=== PATIENT | female | born 1935 | race Caucasian/White ===

== ENCOUNTER 2017-01-19 09:00 | Inpatient (IN) ==
--- NOTE | 2017-01-31 08:34 | HISTORY AND PHYSICAL ---
DATE OF SURGERY: 02/02/2017 HISTORY: The patient is an 81-year-old female referred to me by Dr. Betito Woods who had been having increasing problems with symptomatic pelvic organ prolapse. The patient has undergone pessary management that has lasted approximately 2 months. She has had expulsion of the pessary and she is strongly desiring to proceed with surgical intervention. We discussed an obliterative procedure with her and she understands that this would terminate ability for sexual activity. The patient is being admitted at this time for colpectomy and mid urethral sling with Obtryx. The risks and benefits have been discussed at length. She understands and is wishing to proceed to surgical intervention. PAST MEDICAL HISTORY: Positive for hypertension, atrial fibrillation, type 2 diabetes, hypothyroidism, hypercholesterolemia. PAST SURGICAL HISTORY: Positive for a left mastectomy, bilateral tubal ligation, right hip fracture, and transvaginal hysterectomy. 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 ALLERGIES: None. CURRENT MEDICATIONS: Metoprolol 100, amlodipine 10, irbesartan 300, clonidine 0.1, levothyroxine 88, pravastatin 20, potassium 10 mEq, Lasix 40 mg, and p.r.n. medications. SOCIAL HISTORY: Negative for tobacco, ETOH, or drugs. FAMILY HISTORY: Noncontributory. PHYSICAL EXAMINATION: VITAL SIGNS: Her BMI is noted to be 20. HEENT: Normocephalic, atraumatic. PERRLA. EOMI. No thyromegaly. CV: Regular rate and rhythm without murmur, gallop, or rub. PULMONARY: Clear to auscultation and percussion. ABDOMEN: Soft. : Shows POP-Q stage III prolapse with most of it being anterior and apical in nature, and her posterior compartment is not as bad. NEUROLOGIC: Afocal. ASSESSMENT AND PLAN: Patient with advanced stage prolapse who has failed pessary management, is admitted now for surgical intervention. The risks and benefits have been discussed. She understands and wishes to proceed. cc: Scott Camejo MD
[2017-01-31 09:11] LABS: MANUAL DIFF NEEDED? NO
[2017-01-31 10:08] LABS: BASO% 0.3 % (0.0-0.8); EOS# 0.22 X1000 (0.0-0.7); EOS% 2.2 % (0.0-10.0); HEMATOCRIT 44.8 % (37.0-47.0); HEMOGLOBIN 15.6 g/dL (12.0-16.0); IMM GRAN# 0.04 X1000 (0.0-0.04); IMM GRAN% 0.4 % (0.0-0.5); LYMPH# 3.19 X1000 (1.2-3.4); LYMPH% 31.4 % (20.5-51.1); MCH 29.8 PG (27-31); MCHC 34.8 g/dL (33-37); MCV 85.7 FL (81-99); MONO# 0.78 X1000 (0.11-0.59); MONO% 7.7 % (1.7-9.3); MPV 10.3 FL (7.4-10.4); PLT 265 X1000 (130-400); RBC 5.23 XMIL (4.2-5.4)
[2017-02-02] MEDS ORDERED: LR 1,000 ML IV SCH (05:32)
--- NOTE | 2017-02-02 06:01 | EKG Report ---
Test Performed on : 02/02/2017 05:48:13 AM Test Reason : pre op, on arrival Blood Pressure : / mmHG Vent. Rate : 060 BPM Atrial Rate : 300 BPM P-R Int : 000 ms QRS Dur : 092 ms QT Int : 418 ms P-R-T Axes : 000 -30 009 degrees QTc Int : 418 ms Atrial fibrillation. Left axis deviation Minimal voltage criteria for LVH, may be normal variant Abnormal ECG No previous ECGs available Unconfirmed Result
[2017-02-02] MEDS ORDERED: DIPRIVAN 1% ONE ×2 (06:23→07:38)
[2017-02-02] MEDS ORDERED: FENTANYL ONE (06:24)
[2017-02-02] MEDS ORDERED: QUELICIN (DOSE) ONE (06:25)
[2017-02-02] MEDS ORDERED: XYLOCAINE-MPF 2% ONE (06:25)
[2017-02-02 06:26] LABS: CALCIUM 9.3 mg/dL (8.8-10.2); POTASSIUM 3.7 mmol/L (3.5-5.1)
[2017-02-02] MEDS ORDERED: LR 1,000 ML ONE ×4 (06:27→15:40)
[2017-02-02] MEDS ORDERED: ZEMURON ONE (06:27)
[2017-02-02] MEDS ORDERED: SODIUM CHLORIDE 0.9% ONE (06:39)
[2017-02-02] MEDS ORDERED: SENSORCAINE 0.25%/EPI 1:200,000 ONE (06:40)
[2017-02-02] MEDS ORDERED: D10W 500 ML ONE (06:40)
[2017-02-02] MEDS ORDERED: KEFZOL 1 GM/D5W 1 GM/50 ML IVPB ONE (07:04)
[2017-02-02] MEDS ORDERED: PEPCID ONE (07:07)
[2017-02-02] MEDS ORDERED: LASIX ONE (08:08)
[2017-02-02] MEDS ORDERED: TORADOL ONE (08:18)
--- NOTE | 2017-02-02 08:47 | Diag Imaging Result Doc PS360 ---
EXAM: CHEST-PORTABLE HISTORY: PRE-OP TECHNIQUE: Single view of the chest was performed portably. COMPARISON: 09/20/2016 FINDINGS: There is stable cardiomegaly and right paratracheal opacity . There is evidence of previous granulomatous infection. No acute infiltrates or effusions are identified. Left mastectomy and surgical clips left axilla are noted. IMPRESSION: Cardiomegaly. No acute abnormalities are appreciated. Electronically signed by Vernell Viera 02/02/2017 8:44 AM
[2017-02-02] MEDS ORDERED: CATAPRES PO SCH ×2 (09:53→21:00)
[2017-02-02] MEDS ORDERED: ZOFRAN ODT PO PRN (09:53)
--- NOTE | 2017-02-02 14:11 | OPERATIVE NOTE ---
PROCEDURE DATE: 02/02/2017 PREOPERATIVE DIAGNOSIS: Pelvic organ prolapse. POSTOPERATIVE DIAGNOSIS: Pelvic organ prolapse. PROCEDURE: Colpectomy, mid urethral sling with Obtryx, and perineorrhaphy. SURGEON: Dr. Scott Camejo. WOODEN BOAT BUILDER: Dr. Hussein Evans. ANESTHESIA: General. ESTIMATED BLOOD LOSS: 25 mL. HISTORY: The patient is an 81-year-old female who has been having increasing problems with symptomatic pelvic organ prolapse. She had undergone pessary management for some time and was now tiring of this and wished to proceed with surgical intervention. OPERATIVE FINDINGS: Patient is found have POP-Q stage IV prolapse based on total vaginal length. She did not have a full eversion of the vagina, but based on apical descent versus total vaginal length, it did meet qualifications for POP-Q stage IV prolapse. She was found to have a normal bladder on cystoscopy after completion of the procedure, with efflux of urine from both ureters. No other abnormalities were noted. OPERATIVE PROCEDURE: Patient was taken to the operating room and placed in supine position. After adequate general anesthesia was obtained, she was placed in candy cane stirrups, and the vagina and perineum prepped and draped in the usual fashion. We identified the defect and grasped the area at the vagina with Allis clamps. It was felt to be consistent with the apex. She did not have very prominent scars from her prior hysterectomy. After doing this, we then dried the vaginal tissue off with 4x4s and then demarcated anterior and posterior quadrants of the vagina in order to do a systematic dissection. Upon doing this, we then injected the 2 anterior quadrants with of 0.25% Marcaine with epinephrine diluted 50% with normal saline. We did this in a split- thickness dissection, not a total-thickness dissection, in order to leave as much of the fascia and muscularis as possible with the viscus. Upon doing this, we then began our dissection. Using traction and counter traction, we dissected off the anterior 2 quadrants. We then turned our attention towards the posterior compartment and, in a similar fashion, dissected off those 2 quadrants after infiltration with of 0.25% Marcaine with epinephrine diluted 50% with normal saline. We then began our pursestring closures using 2-0 Vicryl ligature. We did successive pursestring closure until we had involution of the defect and could visualize closure of the anterior and posterior vaginal mucosa. This was done with interrupted 0 Vicryl ligatures. We then grasped the urethra proximally and distally, and injected approximately another 10 mL of the same diluent for hydrodissection of the periurethral space. We made a sagittal incision and used Metzenbaum scissors to dissect up towards the ischial pubic ramus on each side. Based on the bony landmarks of the ischial pubic ramus and the insertion of the adductor longus, a stab incision was initially made on the left-hand side. A halo device was introduced through this incision into the pulp making plant operator's finger, which directed it out. The mesh was attached to it. It was retracted back through the skin. This was performed on the contralateral side in a similar fashion. At this time, cystoscope was introduced into the bladder and both ureters were found to be effluxing urine. We could see the large hump in the trigone area from our surgical correction, but no other abnormalities were noted. Cystoscope was removed. A Debra clamp was placed in the mid urethral position. The tape was brought out with the Debra clamp and the blue tag was excised, and the sheaths were easily removed. There was no tension on the mesh whatsoever. At this time, the mid urethral incision was closed with a running 2-0 Vicryl ligature. We then turned our attention towards the perineorrhaphy/ An Allis clamp was utilized to grasp the apex and then the 2 lateral portions of our dissection. We injected another 20 mL of the same diluent into this area for hydrodissection. We made a junior-shaped incision, and dissected off the bulbocavernosus muscles from the perineal body and dissected off the vaginal mucosa also from the distal levators. We then plicated this area with interrupted 0 Vicryl ligatures that were placed in [id number] fashion. After completion of this, the remaining incision was closed in the typical fashion as if it was a 2nd-degree episiotomy. Wallace catheter was placed. Hemostasis was observed. Sponge count, instrument count, and needle count were correct x3. Packs and drains were a Wallace. Patient was awakened and taken to the recovery room with vital signs stable. cc: Scott Camejo MD
[2017-02-02] MEDS: TORADOL IV SCH ×2 (16:19→20:33)
[2017-02-02] MEDS ORDERED: NORCO-5 PO PRN (17:06)
--- NOTE | 2017-02-02 17:12 | PROGRESS NOTE ---
DATE: 02/02/2017 TIME SEEN: Approximately 4:45 p.m. SUBJECTIVE: Patient is alert and oriented x3. Having no complaints. OBJECTIVE: Afebrile. Vital signs stable. Urine output is clear. Her replaced the dressing on her left groin is now dry. ASSESSMENT AND PLAN: Routine postoperative care. We will DC Wallace in the a.m. and voiding trial in the a.m. I was called to see the patient approximately 1:15 because of "hemorrhaging." Upon arrival to the room the patient's found have bleeding from her left groin surgical site where the mesh came through. With pressure applied to this area the bleeding stopped. No other abnormalities since that time. cc: Scott Camejo MD
[2017-02-02] MEDS: KLOR-CON PO SCH (18:15)
[2017-02-02] MEDS: COLACE PO SCH (20:34)
[2017-02-02] MEDS: LR 1,000 ML IV SCH (20:41)
[2017-02-02] MEDS ORDERED: AVAPRO PO SCH (21:00)
[2017-02-03] MEDS: LR 1,000 ML IV SCH ×2 (03:30→06:03)
[2017-02-03] MEDS: TORADOL IV SCH ×2 (03:30→08:44)
[2017-02-03] MEDS ORDERED: SYNTHROID PO SCH (07:00)
[2017-02-03] MEDS: KLOR-CON PO SCH (08:43)
[2017-02-03] MEDS: COLACE PO SCH (08:43)
[2017-02-03] MEDS ORDERED: NORVASC PO SCH (09:00)
[2017-02-03] MEDS ORDERED: KLOR-CON PO SCH (09:00)
[2017-02-03] MEDS ORDERED: AVAPRO PO SCH (09:00)
[2017-02-03] MEDS ORDERED: LASIX PO SCH (09:00)
[2017-02-03] MEDS ORDERED: CATAPRES PO SCH (09:00)
[2017-02-03] MEDS ORDERED: TOPROL XL PO SCH (09:00)
[2017-02-03 11:25] VITALS: BP 139/70
--- NOTE | 2017-02-03 11:36 | DISCHARGE SUMMARY ---
ADMISSION DATE: 02/02/2017 DISCHARGE DATE: 02/03/2017 PRINCIPAL DIAGNOSIS: Pelvic organ prolapse. PROCEDURE: Colpectomy, perineorrhaphy, and Obtryx. HISTORY: The patient is an 81-year-old female who was referred to me by Dr. Berto Woods, whose been having increasing problems with symptomatic pelvic organ prolapse. She was admitted for surgical intervention. HOSPITAL COURSE: The patient underwent the above-stated procedure. Blood loss at that time was 25 mL. Postoperative course was complicated by left groin bleed that responded to pressure dressing. Other than that, she has had no problems whatsoever. She is currently undergoing voiding trial and is being discharged home with instructions for followup in 3 weeks. DISCHARGE MEDICATIONS: [place] 5 and Colace. DISCHARGE INSTRUCTIONS: She was instructed on a regular diet and decreased activity. cc: Scott Camejo MD
== END 2017-02-03 12:50 | disposition home or self-care (01) ==
LOC: EDSTATUS 09:00 → P.WC 02-02 05:29
PROVIDERS: ADMIT Obstetrics & Gynecology; ATTEND Obstetrics & Gynecology

== ENCOUNTER 2019-05-20 10:50 | Inpatient (IN) ==
--- NOTE | 2019-05-20 11:52 | Diag Imaging Result Doc PS360 ---
EXAM: CT HEAD W/O CONTRAST - 05/20/2019 HISTORY: r/o cva;weakness and falls TECHNIQUE: CT head without contrast COMPARISON: None. FINDINGS: There are some atrophic changes. There are chronic appearing microvascular ischemic changes. There is no indication of recent infarct, although acute infarcts may not be immediately visible. There are atherosclerotic calcifications noted at the base the brain. There is no evidence of intracranial hemorrhage, mass effect, or midline shift. There is no evidence of skull fracture. IMPRESSION: No visible acute intracranial abnormality. No hemorrhage or mass effect. This exam was performed using automated exposure control, adjustment of mA or kV according to patient size, and/or use of iterative reconstruction technique. Electronically signed by Carlos Gallagher 05/20/2019 11:50 AM
[2019-05-20 12:33] LABS: ALBUMIN 4.5 g/dL (3.5-5.0); CALCIUM 9.5 mg/dL (8.8-10.2); POTASSIUM 3.8 mmol/L (3.5-5.1); TOTAL BILIRUBIN 0.89 mg/dL (0.20-1.00); TOTAL PROTEIN 6.8 g/dL (6.3-8.3)
[2019-05-20 12:35] LABS: URINE SOURCE CATH
[2019-05-20 12:39] LABS: BASO# 0.02 X1000 (0.0-0.2); BASO% 0.1 % (0.0-0.8); EOS# 0.11 X1000 (0.0-0.7); EOS% 0.8 % (0.0-10.0); HEMATOCRIT 42.9 % (37.0-47.0); HEMOGLOBIN 14.7 g/dL (12.0-16.0); IMM GRAN# 0.04 X1000 (0.0-0.04); IMM GRAN% 0.3 % (0.0-0.5); LYMPH# 1.67 X1000 (1.2-3.4); LYMPH% 12.4 % (20.5-51.1); MCH 29.6 PG (27-31); MCHC 34.3 g/dL (33-37); MCV 86.5 FL (81-99); MONO# 0.57 X1000 (0.11-0.59); MONO% 4.2 % (1.7-9.3); MPV 10.6 FL (7.4-10.4); NEUT# 11.09 X1000 (1.4-6.5); NEUT% 82.2 % (42.2-75.2); PLT 221 X1000 (130-400); RBC 4.96 XMIL (4.2-5.4); RDW 13.1 % (11.5-14.5)
[2019-05-20 12:44] LABS: BILIRUBIN URINE NEGATIVE (NEGATIVE); BLOOD URINE TRACE (NEGATIVE); COLOR YELLOW; GLUCOSE URINE >1000 mg/dL (NEGATIVE); KETONE URINE NEGATIVE (NEGATIVE); LEUKOCYTES URINE NEGATIVE (NEGATIVE); NITRITE URINE NEGATIVE (NEGATIVE); PH URINE 6.5; PROTEIN URINE 50 mg/dL (NEGATIVE); SP GRAVITY URINE 1.013; TURBIDITY URINE CLEAR (CLEAR); UR EPITHELIAL CELLS <10 /HPF (<10); URINE BACTERIA NEGATIVE /HPF; URINE RBC <10 /HPF (<10); URINE WBC <10 /HPF (<10); UROBILINOGEN URINE NORMAL (NORMAL)
--- NOTE | 2019-05-20 13:25 | Diag Imaging Result Doc PS360 ---
EXAM: CHEST-PORTABLE - 05/20/2019 HISTORY: weakness TECHNIQUE: Portable chest one view COMPARISON: 10/19/2018 FINDINGS: The patient is rotated towards the right. There is stable mild cardiomegaly. Mild basilar interstitial scarring. The lungs appear grossly clear of acute changes. There is no pleural effusion or pneumothorax identified. IMPRESSION: Stable mild cardiomegaly. Mild basilar interstitial scarring. No other evidence of acute disease. Electronically signed by Carlos Gallagher 05/20/2019 1:22 PM
[2019-05-20] MEDS ORDERED: NS 1,000 ML IV ONE (13:44)
[2019-05-20] MEDS ORDERED: TYLENOL PO PRN (13:44)
--- NOTE | 2019-05-20 14:41 | Diag Imaging Result Doc PS360 ---
EXAM: ELBOW 2 VIEWS RIGHT - 05/20/2019 HISTORY: right shoulder pain TECHNIQUE: Portable right elbow two views COMPARISON: None. FINDINGS: Exam is suboptimal due to the lack of inclusion of an oblique view. The bones appear osteopenic. There are some osteoarthritic changes. No fracture, dislocation, or distal humeral fat pad elevation identified. IMPRESSION: Possible osteopenia. Osteoarthritic changes. Electronically signed by Carlos Gallagher 05/20/2019 2:38 PM
--- NOTE | 2019-05-20 14:42 | Diag Imaging Result Doc PS360 ---
EXAM: SHOULDER-RIGHT - 05/20/2019 HISTORY: Right shoulder pain TECHNIQUE: Portable right shoulder two views COMPARISON: None. FINDINGS: The bones appear osteopenic. There are apparent mild osteoarthritic changes. There is no fracture or dislocation identified. IMPRESSION: Apparent osteopenia. Mild osteoarthritic changes. No evidence of fracture or dislocation. Electronically signed by Carlos Gallagher 05/20/2019 2:39 PM
[2019-05-20] MEDS ORDERED: SODIUM CHLORIDE 0.9% INJ SCH (15:45)
[2019-05-20] MEDS ORDERED: LOVENOX SUBQ SCH (15:45)
[2019-05-20] MEDS: COREG PO SCH ×2 (15:54→21:40)
[2019-05-20] MEDS: SYNTHROID PO SCH ×2 (15:54→15:59)
[2019-05-20] MEDS: NORVASC PO SCH (15:54)
[2019-05-20] MEDS: NEXIUM IV SCH (15:54)
[2019-05-20] MEDS: HUMULIN R SUBQ SCH ×2 (16:06→21:41)
[2019-05-20] MEDS ORDERED: NS 1,000 ML IV SCH (16:15)
--- NOTE | 2019-05-20 17:11 | HISTORY AND PHYSICAL ---
CHIEF COMPLAINT: Frequent falls since this morning, confusion, speech impediments, and weakness on the right side of the body. HISTORY OF PRESENT ILLNESS: She is an 84-year-old white female patient of Dr. Woods. She has been doing well until this morning. She lives close to the hospital. She is a mother of 3 children. 5 years ago. One of her son is an defense attorney from [place] is visiting and reported to me that this morning she started falling. Then after she got settled down, he just left. Then she called back by one of her daughter's that she is again falling a 2nd time, and the family brought her to the ER. She has some weakness on the right side. No headache or nausea. Initial CT was negative for acute hemorrhage or any pathology. Basically admitted to the hospital for CVA on the left side with right-sided weakness. When she got to the floor, her speech is slowly improving. She is able to move the right arm but not the right leg. PAST MEDICAL HISTORY: 1. Hypertension. 2. Osteoarthritis. 3. History of breast cancer on the left side in July 2000. 4. Interstitial cystitis. 5. Hypothyroidism. 6. Type 2 diabetes. 7. Hyperlipidemia. 8. History of atrial fibrillation. 9. Strabismus of left eye. 10. Diagnosed with kidney stones on the left side. 11. Diverticulosis. PAST SURGICAL HISTORY: 1. Vaginal hysterectomy. 2. Left mastectomy. 3. Right hip fracture. 4. Open reduction, internal fixation. 5. Pelvic sling in January 2017. 6. Cholecystectomy. 7. Cataract surgery on the left side. 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 Mother of 3 children. 5 years ago. No smoking. No alcohol. FAMILY HISTORY: First-degree relatives, some heart attacks. No significant family history noted.. HEALTH MAINTENANCE: Pneumococcal vaccine, March 2016, and July 2016. Prevnar 13 was given 01/02/2016. Influenza vaccine was given 2 weeks ago on May 01. MEDICATIONS: Calcium with vitamin D3 one tablet daily, pravastatin 20 mg daily, chondroitin sulfate 1 tablet p.o. b.i.d., multivitamin 1 tablet daily, aspirin 325 daily, Synthroid 88 mcg daily, Coreg 25 p.o. b.i.d., fish oil 1 tablet daily, digoxin 125 mcg daily, amlodipine 5 mg daily, Micardis 80 mg daily, clonidine as needed. ALLERGIES: Reported to cephalexin. REVIEW OF SYSTEMS: HEENT: No headache. No vision problems. Neck: No goiter. No lymphadenopathy. Prominent carotid artery pulsation on the left side. Cardiopulmonary: No chest pain, shortness of breath, PND, orthopnea. GI: No nausea, vomiting, abdominal pain. : No history of hesitancy, frequency, dysuria. Neurologic: Weakness on the right side of the body. No seizures. Frequent falls, losing balance. No external injuries. PHYSICAL EXAMINATION: VITAL SIGNS: Temperature is 98.2 degrees, pulse 76, blood pressure is 152/72, 92% on room air. Height 5 feet 4 inches, weight 130 pounds. HEENT: Atraumatic, normocephalic. Pupils equal and reactive to light. She has weakness of the lateral rectus muscle on the left eye, and the left eye is medially deviated. Tongue is in midline. Facial nerve is intact. NECK: Supple. Prominent left carotid artery. CARDIAC: Irregular heart sounds. LUNGS: Bilateral air entry. CHEST: Left side of the breast was mastectomy done. No lymphadenopathy. ABDOMEN: Belly is soft, nontender. Good bowel sounds. EXTREMITIES: Right leg is slightly weak and slightly rotated outside. Slightly shortened. NEUROLOGIC: Speech is normal. Facial nerve is intact. Right upper extremity 4/5 weakness. Right leg is 2/5. Left knee and osteoarthritis noted. Plantar is going up. No meningeal signs. INVESTIGATIONS: White cell count 13.5, hematocrit 42.9, platelets 221,000. Sodium 137, potassium 3.8, chloride 97, BUN 20, creatinine 1, glucose 326. AST and ALT were high. CK and troponin were normal. Urinalysis positive for glucose. Shoulder x-ray on the right side. Osteopenia. Mild osteoarthritic changes. No evidence of fracture or dislocation. Elbow x-ray possible osteopenia, osteoarthritic changes. Chest x-ray. Stable cardiomegaly, no acute disease. CT head, no visible acute intracranial abnormality. No hemorrhage or mass effect. ASSESSMENT AND PLAN: 1. An 84-year-old white female admitted to the hospital with left cerebrovascular accident with right-sided weakness waxing and waning with context of chronic atrial fibrillation. She is high risk for a stroke based on the CHADS-VASc score and consider Eliquis 5 mg p.o. b.i.d. 2. MRI of the brain and MRA of the neck and the intracranial vessels. Carotid Dopplers. Neurology consultation. Neurovascular checking. 3. Type 2 diabetes. Check the A1c and follow-up on sliding scale with insulin coverage. 4. Hypothyroidism, on Synthroid. 5. Hypertension, heart disease on amlodipine, Coreg, and Micardis 80 mg daily. 6. Hyperlipidemia on pravastatin. We will check the LDL level. 7. Physical therapy consultation. 8. Dr. Woods is going to follow up. I spoke to the family at bedside at this time. I do not see any contraindication for anticoagulation and GI prophylaxis with IV Nexium and follow up. cc: Solomon Rangel MD
[2019-05-20] MEDS ORDERED: COREG PO SCH (21:00)
[2019-05-20] MEDS ORDERED: MICARDIS PO SCH (21:00)
[2019-05-20] MEDS: FISH OIL CONCENTRATE PO SCH (21:40)
[2019-05-20] MEDS: LANOXIN PO SCH (21:40)
[2019-05-20] MEDS: PRAVACHOL PO SCH (21:40)
[2019-05-20] MEDS: ELIQUIS PO SCH (21:41)
[2019-05-21] MEDS: SYNTHROID PO SCH (06:58)
[2019-05-21] MEDS: HUMULIN R SUBQ SCH ×4 (06:59→22:20)
[2019-05-21 07:03] LABS: BASO# 0.02 X1000 (0.0-0.2); BASO% 0.2 % (0.0-0.8); EOS# 0.16 X1000 (0.0-0.7); EOS% 1.2 % (0.0-10.0); HEMATOCRIT 43.6 % (37.0-47.0); HEMOGLOBIN 15.2 g/dL (12.0-16.0); IMM GRAN# 0.05 X1000 (0.0-0.04); IMM GRAN% 0.4 % (0.0-0.5); LYMPH# 1.99 X1000 (1.2-3.4); LYMPH% 15.5 % (20.5-51.1); MCH 30.1 PG (27-31); MCHC 34.9 g/dL (33-37); MCV 86.3 FL (81-99); MONO# 1.04 X1000 (0.11-0.59); MONO% 8.1 % (1.7-9.3); MPV 10.1 FL (7.4-10.4); NEUT% 74.6 % (42.2-75.2); PLT 232 X1000 (130-400); RBC 5.05 XMIL (4.2-5.4); RDW 13.1 % (11.5-14.5); WBC 12.86 X1000 (4.8-10.8)
[2019-05-21 07:16] LABS: HEMOGLOBIN A1C 8.6 % (4.8-6.0)
[2019-05-21 07:31] LABS: AGAP 15; ALB/GLOB RATIO 1.9; ALBUMIN 4.5 g/dL (3.5-5.0); ALKALINE PHOSPHATASE 89 U/L (32-104); BUN 12 mg/dL (8-22); CALCIUM 9.4 mg/dL (8.8-10.2); CHLORIDE 102 mmol/L (98-107); CHOLESTEROL 140 mg/dL (0-200); CK PROFILE 109 U/L (24-173); COSMO 286; CREATININE 0.9 mg/dL (0.5-0.9); ESTIMATED GFR 60; GLUCOSE 216 mg/dL (70-104); GOT 30 U/L (10-30); GPT 41 U/L (10-36); HDL 36 mg/dL (45-65); LDL 75 mg/dL; POTASSIUM 3.5 mmol/L (3.5-5.1); SODIUM 140 mmol/L (136-145); TCO2 23 mmol/L (25-35); TOTAL BILIRUBIN 1.06 mg/dL (0.20-1.00); TOTAL PROTEIN 6.9 g/dL (6.3-8.3); TRIGLYCERIDES 145 mg/dL (35-135); VLDL 29 mg/dL
--- NOTE | 2019-05-21 07:43 | EKG Report ---
Test Performed on : 05/20/2019 11:20:02 AM Test Reason : chest pain Blood Pressure : / mmHG Vent. Rate : 066 BPM Atrial Rate : 227 BPM P-R Int : 000 ms QRS Dur : 080 ms QT Int : 344 ms P-R-T Axes : 000 -25 -33 degrees QTc Int : 360 ms Atrial fibrillation. Minimal voltage criteria for LVH, may be normal variant ST & T wave abnormality, consider anterolateral ischemia Abnormal ECG When compared with ECG of 30-SEP-2018 12:33, Vent. rate has decreased BY 39 BPM Non-specific change in ST segment in Lateral leads Nonspecific T wave abnormality now evident in Inferior leads T wave inversion now evident in Anterolateral leads QT has shortened Unconfirmed Result
[2019-05-21] MEDS ORDERED: SYNTHROID PO SCH (09:00)
[2019-05-21] MEDS: FISH OIL CONCENTRATE PO SCH ×2 (09:51→22:17)
[2019-05-21] MEDS: COREG PO SCH ×2 (09:51→22:17)
[2019-05-21] MEDS: ASPIRIN PO SCH (09:51)
[2019-05-21] MEDS: CENTRUM SILVER PO SCH (09:51)
[2019-05-21] MEDS: CALTRATE 600 + D PO SCH (09:52)
[2019-05-21] MEDS: NORVASC PO SCH (09:52)
[2019-05-21] MEDS: ELIQUIS PO SCH ×2 (09:52→22:17)
--- NOTE | 2019-05-21 12:21 | Diag Imaging Result Doc PS360 ---
EXAM: MRA BRAIN W/O CONTRAST 05/21/2019 HISTORY: CVA TECHNIQUE: 3-D [id number] COMMENT: The peripheral vessels are not well demonstrated, however there is no evidence of occlusion of the middle or posterior cerebral arteries proximally. There is occlusion or hypoplasia of the A1 segment on the right. There is apparent supply of both anterior cerebral arteries from the left. IMPRESSION: Poor visualization of the distal vessels. Occlusion or hypoplasia of the A1 segment on the right. Electronically signed by Enrique Centeno 05/21/2019 12:19 PM
--- NOTE | 2019-05-21 12:21 | Diag Imaging Result Doc PS360 ---
EXAM: MRI BRAIN W/WO CONTRAST 05/21/2019 HISTORY: CVA TECHNIQUE: T1 sagittal, axial and post gadolinium-enhanced axial with coronal reformation, T2, FLAIR, DWI axial and coronal gradient echo. COMMENT: There is mild generalized cerebral and cerebellar atrophy. There are patchy and punctate areas of increased T2-weighted signal intensity throughout the white matter of both hemispheres. This appears to include some encephalomalacia in the body of the corpus callosum slightly to the left of the midline. There is no evidence of abnormal gadolinium enhancement. There is restricted diffusion in the subcortical white matter of the posterior left parietal lobe and in the corpus callosum and adjacent rodriguez radiata on the left. There is a small ossified meningioma adjacent to the inner table of the calvarium over the left frontal lobe. IMPRESSION: Extensive chronic ischemic changes with apparent subacute or acute ischemia in the left posterior parietal subcortical white matter and corpus callosum. The findings were discussed with Sujit Rangel MD at 05/21/2019 12:19 PM. Electronically signed by Enrique Centeno 05/21/2019 12:19 PM
--- NOTE | 2019-05-21 12:27 | Diag Imaging Result Doc PS360 ---
EXAM: MRA NECK W/CONT 05/20/2019 HISTORY: stroke TECHNIQUE: Contrast enhanced MRA 3-D COMMENT: Both subclavian and common carotid arteries are patent as is the brachiocephalic artery. The distal left common carotid artery apparently passes out of the field and is not demonstrated adequately. There is marked tortuosity in the internal carotid artery on the left. There is an approximately 117 degree turn 2.9 cm from the origin. Left vertebral artery is larger than the right. Both vertebral arteries appear to be patent as does the basilar artery. IMPRESSION: Marked tortuosity of the left internal carotid artery. The possibility of stenosis cannot be entirely excluded given the limitations of the study due to the tortuosity of the vessel and correlation with carotid Doppler is recommended. Nonvisualization of the distal left common carotid artery. Electronically signed by Enrique Centeno 05/21/2019 12:24 PM
[2019-05-21] MEDS: NEXIUM IV SCH (15:37)
--- NOTE | 2019-05-21 15:48 | ECHO REPORT ---
ORDER DATE: 05/20/2019 INDICATION: CVA. FINDINGS: 1. The right atrium appears severely enlarged, dimension is 5 cm. 2. Moderate tricuspid regurgitation. RV systolic pressure of 53. 3. Normal RV size and systolic function. 4. Mild pulmonic insufficiency. 5. Moderate to severe left atrial enlargement. Dimension is 5 cm, volume index of 77. 6. No mitral valve prolapse. Mild mitral regurgitation. Mitral annular calcification is noted. 7. Normal LV size, end-diastolic dimension of 3.9. Normal wall thicknesses with a posterior and interventricular septal wall thickness of 1.1 cm each. Normal LV systolic function. Estimated EF of 65% with normal wall motion. 8. Aortic valve opens well. It is trileaflet. No evidence of stenosis or insufficiency. 9. Aorta appears normal in visualized segments. 10. No pericardial effusion seen. cc: MD Solomon Smith MD
--- NOTE | 2019-05-21 18:31 | PROGRESS NOTE ---
DATE: 05/21/2019 SUBJECTIVE: Patient has seen some improvement in her right leg weakness. She is able to bend at the knee and move her leg about now and she has had improvement in her right arm range of motion as well above her head. 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 She has some ptosis of the left eyelid but is conversing well without any deficit at all in that regard. OBJECTIVE: Afebrile, pulse 66, respirations 20, blood pressure 168/65, O2 saturation 96% room air.CV: Irregularly irregular. Lungs: CTA. Extremities: No edema. Strength in right arm and leg 3+/5. Ptosis left eyelid. Normal conversation. Cranial nerves overall fairly normal except for the ptosis of the left eyelid. ProBNP was mildly elevated this morning at 1518. Blood sugars in the 200s primarily. A1c 8.6. Patient had been refusing to take other anticoagulation for her atrial fibrillation other than aspirin daily, she has been on full dose 325 mg daily per Cardiology as patient had refused anticoagulation with other anticoagulants. She is still reluctant to try those. MRI of the brain does show extensive chronic ischemic changes with subacute ischemic left posterior parietal subcortical white matter and corpus callosum changes. MRA of the brain shows poor visualization of the distal vessels, hypoplasia of the A-1 segment on the right. MRA of the neck shows pronounced tortuosity to the left internal carotid artery. Carotid Dopplers have been obtained today with results still pending. Note that results from 2017 in her chart at the office revealed no major blockage and tortuous vessel at that time. Echocardiogram today shows mild PI, moderate TR, right atrial severe enlargement, moderate to severe left atrial enlargement, mild MR, mitral annular calcification noted. Normal LV function, EF of 65% with normal wall motion. No pericardial effusion. ASSESSMENT: 1. Ischemic cerebrovascular accident with left facial abnormality primarily with left ptosis and moderate weakness right arm and leg. 2. Type 2 diabetes mellitus. 3. Hypertension, longstanding, severe. 4. Chronic atrial fibrillation on chronic aspirin therapy. 5. Hypothyroidism. 6. Hypercholesterolemia. PLAN: Continue home medications, reduction of aspirin 81 mg daily. She had taken the Eliquis 5 mg last night but refused it this morning per nursing personnel. We had a long conversation and she agrees to take it at this point until she can make up her mind more permanently. Otherwise continue SSI and monitor serial Accu-Cheks. Will restart some diabetes medication orally likely tomorrow. Physical therapy is working with the patient and social work msw will be consulted to see if she needs rehab placement. Advised and warned her not to get up from the bed due to the potential risk of falls and she is aware. cc: MD Solomon Jimenez MD
--- NOTE | 2019-05-21 19:32 | CONSULTATION ---
DATE OF CONSULTATION: 05/21/2019 REASON FOR CONSULT: Stroke. HISTORY OF PRESENT ILLNESS: This is an 84-year-old right-handed female with hypertension, type 2 diabetes, hyperlipidemia, chronic atrial fibrillation on aspirin therapy who was admitted for suspicion of stroke. History is from the patient and attentive daughter. The patient felt well when she woke up yesterday morning, but shortly thereafter, began to have falls. She had 2, maybe 3 falls. The family was summoned and they noted that her right arm and leg were weak. They did not notice change to her speech or language. They did not notice initial facial change or other symptoms. Initially, the patient could barely raise her right arm. Now her symptoms have significantly improved; although, she is not at baseline. There was not headache, loss of consciousness. No numbness. No chest pain or shortness of breath. The patient does not have prior personal history of stroke or major neurologic event. PAST MEDICAL HISTORY: Includes hypertension, type 2 diabetes, hyperlipidemia, chronic atrial fibrillation on aspirin therapy, history of breast cancer left side July 2000, hypothyroidism, strabismus of the left eye, left mastectomy, cataract surgery left side. FAMILY HISTORY: Positive for coronary disease. SOCIAL HISTORY: She is retired and lives in the area. She is . No tobacco alcohol or illicits. She lives alone but her daughter is nearby. ALLERGIES: Listed to cephalexin. MEDICATIONS: At home reviewed in the chart. Notable, aspirin 325 mg daily. REVIEW OF SYSTEMS: Balance of 12 conducted and is otherwise negative except that detailed in the HPI. PHYSICAL EXAMINATION: Afebrile, blood pressure 152/70 on admission, currently 147/53, pulse 64, respirations 16, 94% on room air. Ms. Elias is supine in bed, awake, alert, fully oriented, attentive and spontaneous. Speech is fluent. No language disturbance on brief bedside testing. No significant dysarthria. Follows simple and complex commands. Left, right digit distinction preserved. Pupils equal, round, and reactive to bright light. Gaze is dysconjugate with chronic left eye strabismus medially deviated at rest. Otherwise, ocular movements are full. Visual franco intact to direct confrontational testing. She can hear. There is subtle flattening of the right nasolabial fold with otherwise good activation of the face. Facial sensation reported intact. Tongue is midline. Palate elevates symmetrically. Shoulder shrug is full. There is slight drift of the arm without pronation on the right. Tone is equal in limbs. Left arm and leg with good power. On the right, deltoid 4/5, triceps 4/5, biceps 4+ out of 5. 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 Knee flexion and extension 4/5. Bilateral plantar flexion and dorsiflexion are full strength. She reports equal sensation to pinprick on the arms and legs. Reflexes are diminished throughout, 1+ at the biceps bilaterally. No clonus. Plantar response is downgoing bilaterally. She performs [id number] better on the left and has some difficulty on the right. Rapid alternating movements are slowed on the right compared to the left. She did not perform heel-to- magana for me. DIAGNOSTICS: Head CT, noncontrast: No visible acute intracranial abnormality. No mass or hemorrhage. MRI of the brain was personally reviewed. Extensive chronic ischemic change with apparent subacute or acute ischemic infarct in the left posterior parietal subcortical white matter and corpus callosum. There is a small ossified meningioma adjacent to the inner table of the calvarium over the left frontal lobe. Mild generalized cerebral and cerebellar atrophy. MRA: Poor visualization of the distal vessels. Occlusion or hypoplasia of the A-1 segment on the right. Neck MRA: Tortuosity of the left ICA. Stenosis cannot be entirely excluded. Correlation with carotid Doppler is recommended. LABORATORIES: Labs reviewed in the chart. Creatinine 0.9. LDL 75. HDL 36. ASSESSMENT AND PLAN: Acute ischemic stroke within the left posterior parietal subcortical white matter and corpus callosum. She has some right-sided weakness and possibly some ataxia on the right as well. Symptoms have already seen significant improvement which is a good prognostic sign in terms of recovery extent. Typical stroke workup is under way and we can review that. She has multiple stroke risk factors and risk of recurrence is high. Agree with risk factor modification including aggressive blood sugar management, statin therapy and chronically tight control of her high blood pressure. We discussed the risks and benefits of chronic anticoagulation going forward. Current stroke may be related to chronic hypertension, but is difficult to be certain. In light of her atrial fibrillation, multiple vascular risk factors and overall high risk of stroke recurrence, she would likely benefit from chronic anticoagulation therapy in the future provided there are no contraindications. She was pretty adamant that she was not interested in anticoagulation however, and preferred to continue with aspirin therapy alone. I would closely monitor her blood pressure over the next day or so and avoid hypotension. Physical therapy and occupational therapy. Speech therapy for swallow evaluation. Thank you for the consultation. cc: MD Solomon Malagon MD
[2019-05-21] MEDS: PRAVACHOL PO SCH (22:17)
[2019-05-21] MEDS: LANOXIN PO SCH (22:17)
[2019-05-22] MEDS: HUMULIN R SUBQ SCH ×4 (06:30→21:36)
[2019-05-22] MEDS: SYNTHROID PO SCH (06:30)
--- NOTE | 2019-05-22 09:09 | PROGRESS NOTE ---
DATE: 05/22/2019 SUBJECTIVE: The patient is a little more drowsy this morning but she is alert when talking with me and answers questions appropriately and follows commands well. She is having no difficulty swallowing. She was able to stand on both legs with physical therapy assessment yesterday. She remains weak in her right arm and leg, moderately so. The left eyelid continues to droop. OBJECTIVE: Afebrile, pulse 74, respirations 20, blood pressure 173/71, O2 saturation on room air of 95%. CV: Irregularly irregular. Lungs: Clear. Abdomen: Soft, nontender, nondistended. Extremities: No calf tenderness, cords, or edema. Moderate weakness of right arm and leg. Ptosis of left eyelid. Neurological: Otherwise alert and oriented x3. Follows commands well. ASSESSMENT: 1. Ischemic cerebrovascular accident on the left involving left ptosis of the lid and moderate right arm and leg weakness. 2. Chronic atrial fibrillation, previously on chronic aspirin therapy with patient refusing other anticoagulation. 3. Type 2 diabetes mellitus. 4. Hypertension. 5. Hypothyroidism. 6. Hypercholesterolemia. PLAN: We will resume metformin that she was on in the past. Blood sugars improved outpatient but is back up again as A1c is 8.6. She is willing to take the Eliquis right now and plans on discussing the cost of the medication with her insurance company. We will continue it and the aspirin 81 mg daily. Physical therapy is working with the patient. We will continue her blood pressure and heart rate control medicines, and consider reinstitution of clonidine that she was on at home over the next few days. Consult has been made to social media designer regarding possible rehab placement. cc: MD Solomon Jimenez MD
[2019-05-22] MEDS: ASPIRIN PO SCH (09:28)
[2019-05-22] MEDS: CALTRATE 600 + D PO SCH (09:28)
[2019-05-22] MEDS: ELIQUIS PO SCH ×2 (09:28→21:36)
[2019-05-22] MEDS: CENTRUM SILVER PO SCH (09:28)
[2019-05-22] MEDS: COREG PO SCH ×2 (09:28→21:36)
[2019-05-22] MEDS: NORVASC PO SCH (09:28)
[2019-05-22] MEDS: FISH OIL CONCENTRATE PO SCH ×2 (09:30→21:35)
[2019-05-22] MEDS: GLUCOPHAGE XR PO SCH (16:39)
[2019-05-22] MEDS: NEXIUM PO SCH (16:39)
[2019-05-22] MEDS: LANOXIN PO SCH (21:35)
[2019-05-22] MEDS: PRAVACHOL PO SCH (21:36)
[2019-05-22] MEDS: DIOVAN PO SCH (21:36)
[2019-05-23] MEDS: SYNTHROID PO SCH (06:34)
[2019-05-23] MEDS: HUMULIN R SUBQ SCH ×4 (06:34→21:44)
[2019-05-23] MEDS: NORVASC PO SCH (09:17)
[2019-05-23] MEDS: CENTRUM SILVER PO SCH (09:17)
[2019-05-23] MEDS: GLUCOPHAGE XR PO SCH ×2 (09:17→16:02)
[2019-05-23] MEDS: COREG PO SCH ×2 (09:17→21:43)
[2019-05-23] MEDS: CALTRATE 600 + D PO SCH (09:17)
[2019-05-23] MEDS: FISH OIL CONCENTRATE PO SCH ×2 (09:18→21:43)
[2019-05-23] MEDS: ELIQUIS PO SCH ×2 (09:18→21:42)
[2019-05-23] MEDS: ASPIRIN PO SCH (09:18)
[2019-05-23] MEDS ORDERED: MIRALAX PO PRN (10:21)
[2019-05-23] MEDS ORDERED: METAMUCIL POWDER PACKET PO SCH (10:45)
--- NOTE | 2019-05-23 13:47 | PROGRESS NOTE ---
DATE: 05/23/2019 SUBJECTIVE: Patient fairly drowsy this morning, but easily arousable. She began to move about when addressed this morning. Her daughter was in the room, but had not awakened the patient when I saw her. There was some telemetry report of second-degree heart block. OBJECTIVE: Afebrile, pulse 57, respirations 16, blood pressure 152/84. HEENT: Moderate ptosis left eyelid. CV: Irregularly irregular. Lungs: CTA. Abdomen: Nontender nondistended, active bowel sounds. Extremities: No calf tenderness cords or edema. Mild to moderate weakness right arm and leg. Neurological: The patient is arousable. Becomes alert and she answers questions appropriately and follows commands without difficulty. No word-finding difficulties or speech and impairment. LABORATORY: Blood sugars in the upper 100's to upper 200s. ASSESSMENT: 1. Ischemic cerebrovascular accident with deficit of the of the left upper eyelid/ptosis and mild to moderate right arm and leg weakness with patient being able to ambulate some with physical therapy now. 2. Possible second-degree heart block by telemetry per staff. 3. Chronic atrial fibrillation, previously on chronic aspirin therapy with patient refusing to take stronger anticoagulation but now is agreeable to take Eliquis. She is aware of risk and benefits and discussed that with her and her son again yesterday. 4. Type 2 diabetes mellitus. 5. Hypertension. 6. Hypothyroidism. 7. Hypercholesterolemia. PLAN: 1. We will increase metformin ER 1000 mg p.o. b.i.d. continue ADA diet. Continue Eliquis and aspirin 81 mg daily. Continue physical therapy. 2. We will ask her coremaker floor Dr. Alcantar to see her in consultation for possible evaluation of the second-degree heart block. Also will add b.i.d. low-dose clonidine to try to maintain slightly improved blood pressure control. 3. She has a bed available tomorrow at the rehab facility and we will likely discharge tomorrow if okay with Dr. Cunningham. 4. I appreciate Dr. Aguiar's evaluation and help in regard to the patient's neurological status. cc: MD Solomon Jimenez MD
[2019-05-23] MEDS: NEXIUM PO SCH (16:02)
--- NOTE | 2019-05-23 19:19 | CONSULTATION ---
DATE OF CONSULTATION: 05/23/2019 IMPRESSION: 1. Status post subcortical cerebrovascular accident in left posterior parietal region in corpus callosum. This would appear more likely related to small vessel cerebrovascular disease. 2. Chronic atrial fibrillation. Patient has been averse to taking anticoagulation in the past due to some tendency for falling. 3. Mitral valve disorder, with echocardiography this admission showing mild mitral regurgitation and mitral annular calcification. 4. Hypertensive cardiovascular disease. 5. Hyperlipidemia. 6. Type 2 diabetes mellitus. 7. History of recurrent falls. She relates that she has fallen perhaps 3 times over the past year up until her recent fall prior to the present hospitalization. RECOMMENDATIONS: 1. Agree with low dose Eliquis as tolerated. 2. Conservative cardiovascular management overall. HISTORY: This 84-year-old white female, with past history of chronic atrial fibrillation, mild mitral regurgitation, hypertension, hyperlipidemia, and type 2 diabetes mellitus, as well as mild coronary atherosclerosis, was admitted several days ago for suspected cerebrovascular accident. She relates that on the day of admission, she had problems with falling and some right-sided weakness. She was brought to the hospital for evaluation. Brain imaging studies with MRI suggested subcortical cerebrovascular accident in the left hemisphere. There were also chronic ischemic changes. Her right-sided weakness improved rapidly. In the past, she has been averse to taking anticoagulation with Eliquis or other anticoagulants, and had previously opted to take aspirin daily. She is now willing to consider taking Eliquis at this point. She denies any chest pain or shortness of breath. She is not very active physically. She tends to walk with a cane and sometimes with a walker. She relates she has fallen 3 times over the past year, but has not sustained much in the way of injury. There is a past history of previous fall, provoking a hip fracture in the past. PAST MEDICAL HISTORY: 1. Chronic atrial fibrillation. 2. Mild to moderate mitral regurgitation. 3. Mild coronary atherosclerosis. 4. Hypertension. 5. Hyperlipidemia. 6. Type 2 diabetes mellitus. 7. History of breast cancer on the left side. Patient is status post left mastectomy. 8. Nephrolithiasis. 9. Diverticular disease of the colon. PAST SURGICAL HISTORY: Includes: 1. Vaginal hysterectomy. 2. Left mastectomy. 3. Right hip fracture repair. 4. Pelvic sling procedure. 5. Cholecystectomy. 6. Left-sided cataract procedure. ALLERGIES: She is allergic or intolerant to Keflex. MEDICATIONS PRIOR TO ADMISSION: As listed. 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 Her approximately 5 years ago. She does not smoke or use alcohol. She lives at home independently. Her daughter lives a few blocks away. Her daughter has a special needs daughter. FAMILY HISTORY: Negative for premature coronary disease. REVIEW OF SYSTEMS: Pulmonary: Noncontributory. Gastrointestinal: Noncontributory. Constitutional: Noncontributory. Remainder of review of systems negative/noncontributory beyond History of Present Illness, with 14 total systems reviewed. PHYSICAL EXAMINATION: General: This is a frail appearing, elderly white female in no distress. Vital Signs: Blood pressure 152/84. Heart rate 57 and irregular. Oxygen saturation 99% on room air. HEENT: Extraocular muscles appear intact. Mucous membranes are moist. Neck: Supple without jugular venous distention. There are no carotid bruits. Chest: Clear to auscultation. Cardiac: Irregular rate and rhythm without appreciable murmur or gallop. Abdomen: Soft. Bowel sounds are normal. Extremities: Without edema. LABORATORY DATA: Includes white blood cell count 12.86, hematocrit 43.6, hemoglobin 15.2, platelet count 232,000. Sodium 140, potassium 3.5, chloride 102, carbon dioxide 23, BUN 12, creatinine 0.9, glucose 216, triglycerides 145, total cholesterol 140, LDL cholesterol 75, VLDL cholesterol 29, HDL cholesterol 36. 12-lead EKG demonstrates atrial fibrillation, minimal voltage criteria for left ventricular hypertrophy, and nonspecific ST and T-wave abnormality. cc: MD Solomon Pruitt MD
[2019-05-23] MEDS: CATAPRES PO SCH (21:43)
[2019-05-23] MEDS: PRAVACHOL PO SCH (21:43)
[2019-05-23] MEDS: LANOXIN PO SCH (21:43)
[2019-05-23] MEDS: DIOVAN PO SCH (21:43)
[2019-05-24] MEDS: HUMULIN R SUBQ SCH ×2 (06:32→11:22)
--- NOTE | 2019-05-24 07:20 | EKG Report ---
Test Performed on : 05/24/2019 06:49:20 AM Test Reason : afib Blood Pressure : / mmHG Vent. Rate : 064 BPM Atrial Rate : 064 BPM P-R Int : 000 ms QRS Dur : 100 ms QT Int : 396 ms P-R-T Axes : 000 -49 077 degrees QTc Int : 408 ms Atrial fibrillation. Left anterior fascicular block Nonspecific T wave abnormality Abnormal ECG When compared with ECG of 20-MAY-2019 11:20, (Unconfirmed) ST no longer depressed in Anterior leads Non-specific change in ST segment in Lateral leads T wave inversion no longer evident in Anterolateral leads Confirmed by Leonid WILSON, Oscar Bennett ([id number]) on 05/24/2019 9:00:58 AM
[2019-05-24] MEDS ORDERED: METAMUCIL POWDER PACKET PO SCH (09:00)
[2019-05-24] MEDS ORDERED: MIRALAX PO SCH (09:00)
--- NOTE | 2019-05-24 10:26 | DISCHARGE SUMMARY ---
ADMISSION DATE: 05/20/2019 DISCHARGE DATE: 05/24/2019 DIAGNOSES: 1. Acute ischemic cerebrovascular accident within the left posterior parietal subcortical white matter and corpus callosum leading her to have mild to moderate right arm and leg weakness with some ataxia and some ptosis on the left eyelid. 2. Chronic atrial fibrillation with patient being reluctant to take chronic anticoagulation prior to this admission. Now she is on low-dose Eliquis in addition to low-dose aspirin. 3. Marked tortuosity to the left internal carotid artery. 4. Hypertension. 5. Mild mitral regurgitation. 6. Mitral annular calcification. 7. Type 2 diabetes mellitus. 8. Hypercholesterolemia. 9. Hypothyroidism. CONSULTANTS: 1. Dr. Aguiar, neurology. 2. Dr. Cunningham, cardiology. PROCEDURES: 1. CT of head done on admission, 05/20/2019, revealed no visible acute intracranial abnormality. No hemorrhage or mass effect. 2. Chest x-ray, stable cardiomegaly, mild basilar interstitial scarring. No acute disease. 3. Elbow x-ray on the right, possible osteopenia with osteoarthritic change. No fracture. 4. Shoulder x-ray on the right, osteopenia with mild osteoarthritic changes. No fracture or dislocation. 5. Echocardiogram revealed severe enlargement of right atrium, moderate TR, mild PI, normal RV size and systolic function, moderate to severe left atrial enlargement. No MVP. Mild MR. Mild mitral annular calcification. Normal LV size. EF 65% with normal wall motion. Aortic valve trileaflet without stenosis or insufficiency. No pericardial effusion. 6. Neck MRA revealing marked tortuosity of left internal carotid with no definite carotid stenosis identified. 7. MRA of the brain, poor visualization of the distal vessels, occlusion or hypoplasia of A1 segment on the right. 8. MRI of the brain revealing extensive chronic ischemic changes with apparent subacute or acute ischemia in the left posterior parietal subcortical white matter and corpus callosum. 9. Carotid Doppler studies, results not completely rendered at this time but no rate limiting severe stenosis by report, preliminary. REASON FOR ADMISSION AND HOSPITAL COURSE: The patient is an 84-year-old, white female followed in my medical practice. She came in with weakness in her right arm and leg, and was found to have had a stroke. She had been on aspirin therapy, which she would allow but had not allowed further anticoagulation and has suffered from chronic atrial fibrillation, has been followed by Dr. Cunningham. The patient improved within the first 36 hours of hospitalization with some improvement in her right arm and leg weakness, and ptosis of her left upper eyelid. Discussions were had with the patient by myself and Dr. Aguiar, and she did agree eventually to take low-dose Eliquis and that was placed on board and she was given low-dose aspirin 81 mg daily. She was kept on her Pravachol. She was kept on her home medications of Coreg, Norvasc, digoxin, and Micardis. Eventually, the Micardis was changed to Diovan as her Micardis is costing her lot of money and not covered well by insurance. We added low-dose clonidine during the hospitalization on a more scheduled basis and she was maintained on her Synthroid 88 mcg daily. She was kept on calcium supplementation at discharge to help with osteopenia. The patient did well with physical therapy. Dr. Cunningham saw the patient in consultation as well and agreed with the low-dose Eliquis treatment. By discharge, she was doing well, feeding herself, ambulating some. She did have a small contusion to her right hand which was doing well with ice application. She did continue to have some mild to moderate weakness in her right arm and leg. Ptosis of her left upper eyelid is improved. She remained in chronic atrial fibrillation with rate control. Lungs were clear. Labs showed white count of 12.8, hemoglobin 15.2, platelets 232,000. Blood sugars were primarily in the 100s at discharge. A1c was 8.6. CMP unremarkable except ALT of 41, creatinine of 0.9, potassium 3.5. LDL 75, HDL 36, triglycerides 145, total cholesterol 140. Urinalysis during the hospitalization was negative. It was felt by 05/24/2019, she was able to be discharged for continued rehab treatment over at a rehab facility. DISCHARGE MEDICATIONS: Will be calcium plus D3 one p.o. daily, Pravachol 20 mg p.o. at bedtime, glucosamine plus chondroitin two caplets b.i.d., MVI one p.o. daily, fish oil 1200 mg p.o. daily, digoxin 125 mcg p.o. daily, clonidine 0.1 mg p.o. b.i.d., Coreg 25 mg p.o. b.i.d., Diovan 320 mg p.o. daily, Eliquis 2.5 mg p.o. b.i.d., aspirin 81 mg p.o. daily, MiraLAX 17 g in 8 ounces of water daily, Nexium 40 mg p.o. daily, Norvasc 5 mg p.o. daily, Synthroid 88 mcg daily, Tylenol p.r.n., metformin ER 1000 mg p.o. b.i.d. She will be on an 1800 calorie diet with Accu-Cheks b.i.d. cc: MD Solomon Jimenez MD
[2019-05-24] MEDS: ASPIRIN PO SCH (11:17)
[2019-05-24] MEDS: CATAPRES PO SCH (11:17)
[2019-05-24] MEDS: CENTRUM SILVER PO SCH (11:17)
[2019-05-24] MEDS: COREG PO SCH (11:19)
[2019-05-24] MEDS: NORVASC PO SCH (11:20)
[2019-05-24] MEDS: FISH OIL CONCENTRATE PO SCH (11:20)
[2019-05-24] MEDS: GLUCOPHAGE XR PO SCH (11:21)
[2019-05-24] MEDS: ELIQUIS PO SCH (11:21)
[2019-05-24] MEDS: CALTRATE 600 + D PO SCH (11:21)
[2019-05-24 11:38] VITALS: BP 161/54
--- NOTE | 2019-05-25 15:29 | Carotid Study ---
DATE: 05/20/2019 PROCEDURE: Bilateral duplex and color flow imaging of the carotid arteries performed using the [employer] vivid E9 ultrasound System with a 9L-D transducer. INDICATION: Syncope. REFERRING PHYSICIAN: Dr. Rangel. An 84-year-old female. SET UP OPERATOR: Jenna Jordan RVT. FINDINGS: The velocities in cm/sec of both carotid systems were reviewed. The right ICA/CCA ratio was 1.28 corresponding to a percent stenosis of 0 to 39 percent. The left ICA/CCA ratio is 1.64 corresponding to a percent stenosis of 40 to 59 percent. INTERPRETATION: Mild to moderate atherosclerotic disease of the distal common and internal carotid arteries bilaterally without evidence of a hemodynamically significant lesion in either carotid system. When compared to a previous study performed on 05/12/2017, there has been some progression of disease in the left carotid system but it does not appear any progression in the right carotid system. cc: MD Solomon Lloyd MD
--- NOTE | 2019-05-26 06:31 | PROVIDER DOCUMENTATION ---
This chart was entered by Mabel Godfrey Scribe, acting as scribe for Shan Weathers DO. HPI-General Adult - General Chief Complaint: Weakness Stated Complaint: WEAKNESS Time Seen by Provider: 05/20/19 11:11 Source: family Allergies/Adverse Reactions: Patient Allergies Allergy/AdvReac Type Severity Reaction Status Date / Time cephalexin [From Keflex] Allergy HIVES Verified 05/20/19 11:22 Home Medications: Home Medication List Medication Instructions Recorded Confirmed Last Taken Type Calcium Carb, Citrate/Vit D3 1 each PO DAILY 04/24/14 05/20/19 09/30/18 History [Calcium + D3 ER Tablet] Glucosa Menard 2Kcl/Chondroitin Menard 2 each PO BID 04/24/14 05/20/19 09/30/18 History [Glucosamine & Chondroitin Cap] Pravastatin Sodium 20 mg PO QHS 04/24/14 05/20/19 1 Day Ago History ~09/29/18 Aspirin 325 mg PO DAILY 01/21/17 05/20/19 09/30/18 History Levothyroxine [Synthroid] 88 microgm PO DAILY 01/21/17 05/20/19 09/30/18 History Multivitamins/Minerals [Centrum 1 each PO DAILY 01/21/17 05/20/19 09/30/18 History Silver] Carvedilol [Coreg] 25 mg PO BID tablet 07/21/17 05/20/19 09/30/18 Rx Fish Oil/Dha/Epa [Fish Oil 1,200 1 each PO BID 10/24/17 05/20/19 09/30/18 History mg Fish Oil] Amlodipine [Norvasc] 5 mg PO DAILY 09/30/18 05/20/19 09/30/18 History Digoxin 125 mcg PO QPM 09/30/18 05/20/19 09/30/18 History Clonidine [Catapres] 0.1 mg PO HS PRN 05/20/19 05/20/19 Unknown History Acetaminophen [Tylenol] 650 mg PO Q6H PRN PRN tab 05/24/19 Unknown Rx Amlodipine [Norvasc] 5 mg PO DAILY tab 05/24/19 Unknown Rx Apixaban [Eliquis] 2.5 mg PO BID tab 05/24/19 Unknown Rx Aspirin 81 mg PO DAILY chewtab 05/24/19 Unknown Rx Carvedilol [Coreg] 25 mg PO BID tab 05/24/19 Unknown Rx Clonidine [Catapres] 0.1 mg PO BID tab 05/24/19 Unknown Rx Esomeprazole [Nexium] 40 mg PO 1700 cap 05/24/19 Unknown Rx Levothyroxine [Synthroid] 88 microgm PO 0700 tab 05/24/19 Unknown Rx Metformin E.r. [Glucophage Xr] 1,000 mg PO BID CC tab 05/24/19 Unknown Rx Polyethylene Glycol 3350 [Miralax] 17 gm PO DAILY powder, packet 05/24/19 Unknown Rx Valsartan [Diovan] 320 mg PO QPM tab 05/24/19 Unknown Rx - History of Present Illness -Gen Adult Nature of Presenting Problems: 84 yowf presents w/daughter to er w/cc weakness, knee pain and fallen several times. pt children went to home this am and found pt on floor. pt lives at home alone. daughter at bedside sts pt is leaning to rt side and has been mumbling and that is not her typical baseline. pt had hx of dm but had hip replacement sx in 2015 and fsbs became normal. pt fsbs today was 350. daughter sts that pt called her before coming to ed and was normal. pt has hx of afib and takes 325 aspirin daily. Location of Pain/Injury: reports: none Pain Radiation: reports: no radiation Quality of Pain: reports: none Severity: reports: mild Onset/Duration: reports: just prior to arrival Timing: reports: still present Context/Activities at Onset: reports: light activity Modifying Factors: improves with: nothing Associated Symptoms: reports: sensory/motor loss (rt arm motor loss), weakness, other (leaning to rt side, mumbling responses to questions asked.). denies: fever/chills, seizure - Diabetes Related Context Context: reports: high blood sugar, change in mental status Review of Systems - Adult - REVIEW OF SYSTEMS - ADULT Constitutional: reports: see HPI. denies: chills, fever, fatique Eyes: reports: no symptoms reported Ears, Nose, Mouth & Throat: reports: no symptoms reported Cardiovascular: reports: no symptoms reported Respiratory: reports: no symptoms reported Gastrointestinal: reports: no symptoms reported Genitourinary: reports: no symptoms reported Musculoskeletal: reports: see HPI, muscle weakness Integumentary: reports: no symptoms reported Neurological: reports: see HPI, loss of balance (freq falls), other (confusion). denies: dizziness/vertigo, headache/migraines, numbness Psychiatric: reports: no symptoms reported Endocrine: reports: see HPI, other (fsbs 350 at home today). denies: change in skin pigment, excessive sweating, goiter Hematologic/Lymphatic: reports: no symptoms reported Allergic/Immunologic: reports: no symptoms reported All Other Systems: Reviewed and Negative Past History - Adult - PAST MEDICAL HISTORY-ADULT Review of Records: reports: Old Records Reviewed, Nursing Assessment Review, Medications Reviewed, Social history reviewed & non-contributory. Major Childhood Illnesses: reports: denies history Cardiovascular: reports: HTN Respiratory: reports: denies history Gastrointestinal: reports: denies history Obstetrical/Gynecological: reports: denies history Genitourinary: reports: denies history Musculoskeletal: reports: osteoporosis Neurological: reports: denies history Endocrine/Immune: reports: Diabetes Diabetes controlled by:: Diet Other Conditions: reports: denies history - PRIOR SURGERIES/PROCEDURES Surgical/Procedure History: reports: cholecystectomy, hysterectomy, joint repl acement, breast - IMMUNIZATION STATUS Childhood Immunizations: See Nurse Assessment Flu Vaccine: See Nurse Assessment - FAMILY HISTORY Family History: reviewed, not pertinent - SOCIAL HISTORY Smoking: non-smoker Substance Use: none/never Living Situation: alone Physical Exam-General - PHYSICAL EXAM-ADULT Initial Vital Signs Reviewed: Yes - CONSTITUTIONAL General Appearance: no apparent distress, lethargic, slow to respond, other (pt is leaning to rt side, able to answer questions but mumbles responses.). negative: cachetic, anxious - EYES Eyes: PERRL/EOMI, pink conjunctivae - HEAD, EARS, NOSE, MOUTH & THROAT HENMT: normocephalic/atraumatic, moist mucous membranes, normal ENT inspection - NECK Neck: non-tender, full range of motion, supple, other (prominent jugular vein on L neck). negative: normal inspection, trachial deviation, tender lateral, tender midline - RESPIRATORY Respiratory: chest non-tender, lungs clear, normal breath sounds - CARDIOVASCULAR Cardiovascular: normal peripheral pulses, regular rate, rhythm - GASTROINTESTINAL (ABDOMEN) Abdominal Exam: normal bowel sounds, non tender, soft - LYMPHATIC Lymphatic: no adenopathy - MUSCULOSKELETAL Back Exam: normal inspection, no CVA tenderness, no vertebral tenderness Extremity: normal range of motion, non-tender, normal inspection, normal capillary refill, other (weakness of rt arm). negative: pulse deficit, pedal edema, slow capillary refill, tenderness Peripheral Pulses: radial (R): 2+, radial (L): 2+ - SKIN Integumentary: normal color, normal turgor, warm/dry - NEUROLOGIC Neurologic: focal weakness (rt arm), motor weakness (RUE but not RLE). negative: grossly normal, no motor/sensory deficits, aphasia, EOM palsy, facial droop, sensory deficit - PSYCHIATRIC Psych/Mental Status: oriented x 3, other (lethargic, leaning to rt side but can answer questions but mumbles responses.). negative: normal mood/affect, normal thought content, normal thought process, anxious, disheveled, depressed affect Progress - PLAN OF CARE/RESULTS Progress/Plan/Lab Results: Vital Signs - 8 hr 05/20/19 10:58 Temperature 98.2 F Pulse Rate 76 Respiratory Rate 16 Blood Pressure 152/70 O2 Sat by Pulse Oximetry 92 L Laboratory Results - last 24 hr 05/20/19 11:12 POC Glucose 350 H Result Diagrams: 05/21/19 06:07 05/21/19 06:07 - REASSESSMENT Reassessment #1 Time Reassessed: 13:38 Status: improving (pt no longer leaning to rt side but is still focally weak in rt arm and cannot raise up high. RLE strength is good. pt is more alert.) - EKG 1 Time of EKG reading by physician:: 11:20 EKG Read and Signed by:: Shan Weathers EKG Interpretation (*Must complete 3 of following elements*): Abnormal Rate: 66 Rhythm: Afib Spangle: normal QRS: normal, LVH (minimal voltage criteria for LVH, may be normal variant) ST Wave: non-specific ST changes (ST & T wave abnormality, consider anterolateral ischemia) - XRAY 1 XRAY Study: Chest Impression: See EMR Report ( EXAM: CHEST-PORTABLE - 05/20/2019 HISTORY: weakness TECHNIQUE: Portable chest one view COMPARISON: 10/19/2018 FINDINGS: The patient is rotated towards the right. There is stable mild cardiomegaly. Mild basilar interstitial scarring. The lungs appear grossly clear of acute changes. There is no pleural effusion or pneumothorax identified. IMPRESSION: Stable mild cardiomegaly. Mild basilar interstitial scarring. No other evidence of acute disease. Electronically signed by [employer] 05/20/2019 1:22 PM) - CT/MRI 1 CT Study: Head Impression: Normal, See EMR Report (EXAM: CT HEAD W/O CONTRAST - 05/20/2019 HISTORY: r/o cva;weakness and falls TECHNIQUE: CT head without contrast COMPARISON: None. FINDINGS: There are some atrophic changes. There are chronic appearing microvascular ischemic changes. There is no indication of recent infarct, although acute infarcts may not be immediately visible. There are atherosclerotic calcifications noted at the base the brain. There is no evidence of intracranial hemorrhage, mass effect, or midline shift. There is no evidence of skull fracture. IMPRESSION: No visible acute intracranial abnormality. No hemorrhage or mass effect. This exam was performed using automated exposure control, adjustment of mA or kV according to patient size, and/or use of iterative reconstruction technique. Electronically signed by [employer] 05/20/2019 11:50 AM) Comparison with other Films: no prior study - CONSULTS/PCP/HOSPITALIST Notification #1 *Consult/PCP/Hospitalist*: Dr. Rangel Time Discussed: 13:44 Consult Disposition: Admit Departure - Departure Date of Disposition Decision: 05/20/19 Time of Disposition Decision: 15:15 DIAGNOSIS: TIA (transient ischemic attack) Disposition: [facility] 03 Certified Medical Emergency: Emergent Condition: Fair - Critical Care Note This patient required my direct & personal management of CC.: No Attestation - Physician/ EZRA Attestation Patient care was provided by Advanced Practice Provider:: No The physician spent face to face time with patient:: Yes Advanced Practice Provider documentation review:: Supervising physician onsite and consulted in the evaluation and care of this patient. The physician did have a face to face encounter with the patient. This chart was documented by the indicated scribe, (Mabel Godfrey Scribe) and accurately reflects the services I performed and decisions made by me, Shan Weathers DO, as attested by the provider's signature.
== END 2019-05-24 13:05 | DRG 65 ==
LOC: SUPCPDRO → ED 10:50 → 4N 14:25
PROVIDERS: ADMIT Internal Medicine; ATTEND Family Medicine

== ENCOUNTER 2019-08-08 14:22 | Observation (INO) ==
[2019-08-08] MEDS ORDERED: ASPIRIN PO ONE (14:41)
[2019-08-08] MEDS ORDERED: ASPIRIN PR ONE (14:41)
--- NOTE | 2019-08-08 14:44 | EKG Report ---
Test Performed on : 08/08/2019 2:34:34 PM Test Reason : chest tightness, shortness of breath, palpatations Blood Pressure : / mmHG Vent. Rate : 071 BPM Atrial Rate : 063 BPM P-R Int : 000 ms QRS Dur : 082 ms QT Int : 390 ms P-R-T Axes : 000 -26 070 degrees QTc Int : [address] & T wave abnormality, consider inferolateral ischemia Abnormal ECG When compared with ECG of 24-MAY-2019 06:49, Left anterior fascicular block is no longer present Inverted T waves have replaced nonspecific T wave abnormality in Lateral leads Unconfirmed Result
[2019-08-08 15:18] LABS: BASO# 0.01 X1000 (0.0-0.2); BASO% 0.1 % (0.0-0.8); EOS# 0.06 X1000 (0.0-0.7); EOS% 0.6 % (0.0-10.0); HEMATOCRIT 42.5 % (37.0-47.0); HEMOGLOBIN 14.6 g/dL (12.0-16.0); IMM GRAN# 0.03 X1000 (0.0-0.04); IMM GRAN% 0.3 % (0.0-0.5); LYMPH# 2.06 X1000 (1.2-3.4); LYMPH% 19.8 % (20.5-51.1); MCH 30.4 PG (27-31); MCHC 34.4 g/dL (33-37); MCV 88.4 FL (81-99); MONO# 0.71 X1000 (0.11-0.59); MONO% 6.8 % (1.7-9.3); MPV 10.5 FL (7.4-10.4); NEUT# 7.54 X1000 (1.4-6.5); NEUT% 72.4 % (42.2-75.2); PLT 262 X1000 (130-400); RBC 4.81 XMIL (4.2-5.4); RDW 13.2 % (11.5-14.5); WBC 10.41 X1000 (4.8-10.8)
--- NOTE | 2019-08-08 15:21 | Diag Imaging Result Doc PS360 ---
EXAM: CHEST-2 VIEWS 08/08/2019 HISTORY: chest tightness, shortness of breath, palpatations TECHNIQUE: AP upright and lateral chest COMMENT: There is accentuated kyphosis of the thoracic spine. The heart size is slightly enlarged. There are surgical clips in the left axilla. The appearance the chest has not changed significantly since the previous study of 08/08/2019 at 1014. IMPRESSION: Stable chest. Electronically signed by Enrique Centeno 08/08/2019 3:19 PM
[2019-08-08 15:26] LABS: INR 1.17; PROTIME 15.1 Seconds (11.0-16.0)
[2019-08-08 15:27] LABS: PTT 30.7 Seconds (22.3-41.8)
[2019-08-08 15:28] LABS: ALB/GLOB RATIO 1.6; ALBUMIN 4.3 g/dL (3.5-5.0); CALCIUM 9.9 mg/dL (8.8-10.2); CREATININE 1.1 mg/dL (0.5-0.9); POTASSIUM 3.9 mmol/L (3.5-5.1); TOTAL BILIRUBIN 0.35 mg/dL (0.20-1.00)
[2019-08-08] MEDS ORDERED: NITROGLYCERIN TOP ONE (16:02)
--- NOTE | 2019-08-08 16:02 | PROVIDER DOCUMENTATION ---
HPI-Chest Pain - General Chief Complaint: Chest Pain Stated Complaint: HEAVINESS IN CHEST Time Seen by Provider: 08/08/19 14:54 Source: patient Allergies/Adverse Reactions: Patient Allergies Allergy/AdvReac Type Severity Reaction Status Date / Time cephalexin [From Keflex] Allergy HIVES Verified 05/20/19 11:22 Home Medications: Home Medication List Medication Instructions Recorded Confirmed Last Taken Type Calcium Carb, Citrate/Vit D3 1 each PO DAILY 04/24/14 05/20/19 09/30/18 History [Calcium + D3 ER Tablet] Glucosa Menard 2Kcl/Chondroitin Menard 2 each PO BID 04/24/14 05/20/19 09/30/18 History [Glucosamine & Chondroitin Cap] Pravastatin Sodium 20 mg PO QHS 04/24/14 05/20/19 1 Day Ago History ~09/29/18 Aspirin 325 mg PO DAILY 01/21/17 05/20/19 09/30/18 History Levothyroxine [Synthroid] 88 microgm PO DAILY 01/21/17 05/20/19 09/30/18 History Multivitamins/Minerals [Centrum 1 each PO DAILY 01/21/17 05/20/19 09/30/18 History Silver] Carvedilol [Coreg] 25 mg PO BID tablet 07/21/17 05/20/19 09/30/18 Rx Fish Oil/Dha/Epa [Fish Oil 1,200 1 each PO BID 10/24/17 05/20/19 09/30/18 History mg Fish Oil] Amlodipine [Norvasc] 5 mg PO DAILY 09/30/18 05/20/19 09/30/18 History Digoxin 125 mcg PO QPM 09/30/18 05/20/19 09/30/18 History Clonidine [Catapres] 0.1 mg PO HS PRN 05/20/19 05/20/19 Unknown History Acetaminophen [Tylenol] 650 mg PO Q6H PRN PRN tab 05/24/19 Unknown Rx Amlodipine [Norvasc] 5 mg PO DAILY tab 05/24/19 Unknown Rx Apixaban [Eliquis] 2.5 mg PO BID tab 05/24/19 Unknown Rx Aspirin 81 mg PO DAILY chewtab 05/24/19 Unknown Rx Carvedilol [Coreg] 25 mg PO BID tab 05/24/19 Unknown Rx Clonidine [Catapres] 0.1 mg PO BID tab 05/24/19 Unknown Rx Esomeprazole [Nexium] 40 mg PO 1700 cap 05/24/19 Unknown Rx Levothyroxine [Synthroid] 88 microgm PO 0700 tab 05/24/19 Unknown Rx Metformin E.r. [Glucophage Xr] 1,000 mg PO BID CC tab 05/24/19 Unknown Rx Polyethylene Glycol 3350 [Miralax] 17 gm PO DAILY powder, packet 05/24/19 Unknown Rx Valsartan [Diovan] 320 mg PO QPM tab 05/24/19 Unknown Rx - History of Present Illness-CP Nature of Presenting Problem: Patient is an 84 yowf who complains of heart palpitations and intermittent chest "pressure" associated with SOB and nausea that began last night. Denies any other complaints. Hx of ChristopherYg Gallo. Took home nitro in treatment room with moderate relief of pain. Saw her pcp this morning. Pt is non-toxic in appearance. Review of Systems - Adult - REVIEW OF SYSTEMS - ADULT Constitutional: reports: no symptoms reported Eyes: reports: no symptoms reported Ears, Nose, Mouth & Throat: reports: no symptoms reported Cardiovascular: reports: no symptoms reported Respiratory: reports: see HPI Gastrointestinal: reports: see HPI, nausea. denies: abdominal pain, diarrhea, vomiting Genitourinary: reports: no symptoms reported Musculoskeletal: reports: no symptoms reported Integumentary: reports: no symptoms reported Neurological: reports: no symptoms reported Psychiatric: reports: no symptoms reported Endocrine: reports: no symptoms reported Hematologic/Lymphatic: reports: no symptoms reported Allergic/Immunologic: reports: no symptoms reported All Other Systems: Reviewed and Negative Past History - Adult - PAST MEDICAL HISTORY-ADULT Review of Records: reports: Old Records Reviewed, Nursing Assessment Review, Medications Reviewed, Social history reviewed & non-contributory. Major Childhood Illnesses: reports: denies history Cardiovascular: reports: A-Fib, HTN Respiratory: reports: denies history Gastrointestinal: reports: denies history Genitourinary: reports: denies history Musculoskeletal: reports: osteoporosis Neurological: reports: CVA Endocrine/Immune: reports: Diabetes Diabetes Type: Type 2 Diabetes controlled by:: PO Meds - PRIOR SURGERIES/PROCEDURES Surgical/Procedure History: reports: reviewed, not pertinent - IMMUNIZATION STATUS Childhood Immunizations: See Nurse Assessment Flu Vaccine: See Nurse Assessment - FAMILY HISTORY Family History: reviewed, not pertinent - SOCIAL HISTORY Smoking: non-smoker Physical Exam-General - PHYSICAL EXAM-ADULT Initial Vital Signs Reviewed: Yes - CONSTITUTIONAL General Appearance: alert, no apparent distress. negative: lethargic, slow to respond - EYES Eyes: PERRL/EOMI, pink conjunctivae - HEAD, EARS, NOSE, MOUTH & THROAT HENMT: normocephalic/atraumatic - NECK Neck: full range of motion, supple, normal inspection - RESPIRATORY Respiratory: chest non-tender, lungs clear, normal breath sounds, no respiratory distress, no accessory muscle use - CARDIOVASCULAR Cardiovascular: normal peripheral pulses, no edema, no gallop, no murmur, irregularly irregular - GASTROINTESTINAL (ABDOMEN) Abdominal Exam: normal bowel sounds, non tender, soft - MUSCULOSKELETAL Back Exam: normal inspection Extremity: normal range of motion, non-tender, normal inspection - SKIN Integumentary: normal color, warm/dry. negative: cyanosis, diaphoresis, jaundice, mottled, pallor - NEUROLOGIC Neurologic: grossly normal, other (hx CVA with residual left-sided weakness) - PSYCHIATRIC Psych/Mental Status: normal mood/affect, normal thought content, normal thought process, oriented x 3 - HEART Score HEART Score: History: Highly Suspicious HEART Score: ECG: Non-Specific Repolarization Disturbance/LBBB/PM HEART Score: Age: > or = 65 Years HEART Score: Risk Factors for Atherosclerotic Disease: 1 or 2 Risk Factors HEART Score: Troponin: 1-3x Normal Limit Total HEART Score:: 7 Progress - PLAN OF CARE/RESULTS Progress/Plan/Lab Results: Vital Signs - 8 hr 08/08/19 14:26 08/08/19 15:02 Temperature 98.1 F 98.1 F Pulse Rate 72 Respiratory Rate 16 Blood Pressure 136/78 O2 Sat by Pulse Oximetry 96 Laboratory Results - last 24 hr 08/08/19 08/08/19 08/08/19 14:40 14:40 14:40 WBC RBC Hgb Hct MCV MCH MCHC RDW Std Deviation Plt Count MPV Immature Gran % (Auto) Neut % (Auto) Lymph % (Auto) Wallace % (Auto) Eos % (Auto) Baso % (Auto) Immature Gran # (Auto) Neut # (Auto) Lymph # (Auto) Wallace # (Auto) Eos # (Auto) Baso # (Auto) PT INR PTT (Actin FS) Sodium 140 Potassium 3.9 Chloride 100 Carbon Dioxide 23 L Anion Gap 17 BUN 33 H Creatinine 1.1 H Estimated GFR/1.73 m2 47 BUN/Creatinine Ratio 30 Glucose 160 H Calculated Osmolality 290 Calcium 9.9 Total Bilirubin 0.35 AST 17 ALT 20 Alkaline Phosphatase 49 Creatine Kinase 44 Troponin T High Sens 19 H [id number] Pept 2359 H Total Protein 7.0 Albumin 4.3 Globulin 2.7 Albumin/Globulin Ratio 1.6 08/08/19 08/08/19 14:40 14:40 WBC 10.41 RBC 4.81 Hgb 14.6 Hct 42.5 MCV 88.4 MCH 30.4 MCHC 34.4 RDW Std Deviation 13.2 Plt Count 262 MPV 10.5 H Immature Gran % (Auto) 0.3 Neut % (Auto) 72.4 Lymph % (Auto) 19.8 L Wallace % (Auto) 6.8 Eos % (Auto) 0.6 Baso % (Auto) 0.1 Immature Gran # (Auto) 0.03 Neut # (Auto) 7.54 H Lymph # (Auto) 2.06 Wallace # (Auto) 0.71 H Eos # (Auto) 0.06 Baso # (Auto) 0.01 PT 15.1 INR 1.17 PTT (Actin FS) 30.7 Sodium Potassium Chloride Carbon Dioxide Anion Gap BUN Creatinine Estimated GFR/1.73 m2 BUN/Creatinine Ratio Glucose Calculated Osmolality Calcium Total Bilirubin AST ALT Alkaline Phosphatase Creatine Kinase Troponin T High Sens [id number] Pept Total Protein Albumin Globulin Albumin/Globulin Ratio Orders Category Date Time Status Cardiac Monitoring DIRECTED Care 08/08/19 14:41 Active Oxygen Therapy- ED Nursing DIRECTED Care 08/08/19 14:41 Active Saline Loc NOW Care 08/08/19 14:41 Active CHEST-2 VIEWS [RAD] Stat Exams 08/08/19 14:41 Completed CBC WITH ELECTRONIC DIFF [HEME] Stat Lab 08/08/19 14:40 Completed CK PROFILE [SP CHEM] Stat Lab 08/08/19 14:40 Completed COMPREHENSIVE METABOLIC PANEL [CHEM] Stat Lab 08/08/19 14:40 Completed PRO B-NATRIURETIC PEPTIDE Stat Lab 08/08/19 14:40 Completed PROTIME WITH INR [COAG] Stat Lab 08/08/19 14:40 Completed PTT [COAG] Stat Lab 08/08/19 14:40 Completed TROPONIN T HIGH SENSITIVITY Stat Lab 08/08/19 14:40 Completed Aspirin Med 08/08/19 14:41 Discontinued 300 mg ID NOW ONE Aspirin Med 08/08/19 14:41 Discontinued 325 mg PO NOW ONE Nitroglycerin Med 08/08/19 16:02 Discontinued 0.5 inch TOP NOW ONE CP/SOB/Palp >45 yrs of Age Stat Oth 08/08/19 14:41 Ordered EKG [EKG] Stat Ther 08/08/19 14:41 Draft Result Diagrams: 08/08/19 14:40 08/08/19 14:40 - REASSESSMENT Reassessment #1 Time Reassessed: 16:05 Status: other (Admitting HPS paged.) Reassessment #2 Time Reassessed: 16:30 Status: other (Pt in agreement with admission plan.) - EKG 1 Time of EKG reading by physician:: 14:34 EKG Read and Signed by:: Shiv Baeza EKG Interpretation (*Must complete 3 of following elements*): Abnormal Rate: 71 Rhythm: atrial fibrillation QRS: normal Prior EKG Comparison: unchanged from prior - XRAY 1 XRAY Study: Chest ([facility] - [address] [facility] [address], [place] [address] [facility] - [address] [place] [address] Department of Imaging Patient: OBDULIO ECHEVARRIA EADM Date: 08/08/19#: [id number] : 6ADM Status: PRE ERAcct#: [id number] Age/Sex: 84/FRoom/Bed: Loc: ED Ordering Physician: Shiv Baeza MD Family Physician: Betito Woods MD Reason for Procedure: chest tightness, shortness of breath, palpatations Signed EXAM: CHEST-2 VIEWS 08/08/2019 HISTORY: chest tightness, shortness of breath, palpatations TECHNIQUE: AP upright and lateral chest COMMENT: There is accentuated kyphosis of the thoracic spine. The heart size is slightly enlarged. There are surgical clips in the left axilla. The appearance the chest has not changed significantly since the previous study of 08/08/2019 at 1014. IMPRESSION: Stable chest. Electronically signed by Enrique Centeno 08/08/2019 3:19 PM 08/08/19 1519 Interpreting Physician: Enrique Centeno MD Dictated Date/Time: 08/08/19 1518 cc: Shiv Baeza MD; Betito Woods MD) - CONSULTS/PCP/HOSPITALIST Notification #1 *Consult/PCP/Hospitalist*: Dr. Woods Time Discussed: 16:50 Reason/Comments: admission- cp Consult Disposition: Admit (Md states he will come see pt and enter orders.) Departure - Departure Date of Disposition Decision: 08/08/19 Time of Disposition Decision: 16:50 DIAGNOSIS: Chest pain Qualifiers: Chest pain type: unspecified Qualified Code(s): R07.9 - Chest pain, unspecified Disposition: ADMITTED INPATIENT 09 Certified Medical Emergency: Emergent Condition: Stable Referrals and Follow-Ups: [facility] [Outside] Betito Woods MD [Primary Care Provider] - - Critical Care Note This patient required my direct & personal management of CC.: No Attestation - Physician/ EZRA Attestation Patient care was provided by Advanced Practice Provider:: Yes Advanced Practice Provider:: Carlitos Odell Advanced Practice Provider documentation review:: The Mid-level provider documentation, treatment plan and medical decision making was reviewed by the physician who agrees with all treatment and medical decision making by the P. The physician spent face to face time with patient:: No Advanced Practice Provider documentation review:: Supervising physician onsite and consulted in the evaluation and care of this patient. The physician did not have a face to face encounter with the patient.
[2019-08-08] MEDS ORDERED: ZOFRAN IV PRN (17:07)
[2019-08-08] MEDS ORDERED: TYLENOL PO PRN (17:07)
[2019-08-08] MEDS ORDERED: NITROGLYCERIN SL PRN (17:07)
[2019-08-08] MEDS ORDERED: ASPIRIN EC PO SCH (17:15)
[2019-08-08] MEDS: NITROGLYCERIN TOP SCH ×2 (17:15→22:00)
[2019-08-08] MEDS ORDERED: HUMULIN R SUBQ ONE (17:20)
[2019-08-08] MEDS ORDERED: LASIX IV ONE (18:15)
[2019-08-08 19:14] LABS: AGAP 17; BUN 32 mg/dL (8-22); CALCIUM 9.9 mg/dL (8.8-10.2); CHLORIDE 100 mmol/L (98-107); CHOLESTEROL 126 mg/dL (0-200); CK PROFILE 40 U/L (24-173); COSMO 288; ESTIMATED GFR 53; GLUCOSE 92 mg/dL (70-104); HDL 42 mg/dL (45-65); LDL 55 mg/dL; POTASSIUM 3.8 mmol/L (3.5-5.1); SODIUM 141 mmol/L (136-145); TCO2 24 mmol/L (25-35); TRIGLYCERIDES 146 mg/dL (35-135); VLDL 29 mg/dL
[2019-08-08] MEDS ORDERED: LANOXIN PO SCH (21:00)
[2019-08-08] MEDS ORDERED: PRAVACHOL PO SCH (21:00)
[2019-08-08] MEDS: CATAPRES PO SCH (21:39)
[2019-08-08] MEDS: COREG PO SCH (21:40)
[2019-08-08] MEDS: ELIQUIS PO SCH (21:40)
[2019-08-08] MEDS: FISH OIL CONCENTRATE PO SCH (21:41)
[2019-08-08] MEDS: GLUCOSAMINE 500 MG/CHONDROITIN 400 MG PO SCH (21:42)
--- NOTE | 2019-08-08 23:28 | HISTORY AND PHYSICAL ---
CHIEF COMPLAINT: Palpitations, nausea, chest pain. HISTORY OF PRESENT ILLNESS: The patient is an 84-year-old white female followed in my medical practice. She came into the office earlier today complaining of some palpitations, a fluttering sensation in her chest, increasing shortness of breath, some nausea. The latter really occurring during the night. On questioning, she did admit to a brief episode of chest tightness during the night that abated on its own. She had been under quite a bit more stress as she had a minor discussion with her daughter in the last 12 hours. The patient has a history of CVA back in May 2019, she had a stroke. This is ischemic variety and patient has rebounded well from this. She has some minor right arm and leg weakness. MEDICATIONS: Prior to admission are clonidine 0.1 mg p.o. b.i.d., Coreg 25 mg p.o. b.i.d., Eliquis 2.5 mg p.o. b.i.d. daily, levothyroxine 88 mcg p.o. daily, metformin ER 1000 mg p.o. b.i.d., Pravachol 20 mg p.o. at bedtime, digoxin 125 mcg p.o. daily, Norvasc 5 mg p.o. daily, Micardis 80 mg p.o. daily, Nexium 40 mg p.o. daily. ALLERGIES: THAIS inhibitor, which caused a cough in 2012. She has tolerated ARB's well. Keflex. PAST MEDICAL HISTORY: 1. Hypertension diagnosed 1955. 2. Osteoarthritis. 3. Left breast cancer July 2000. 4. Interstitial cystitis March 2002. 5. Hypothyroidism. 6. Type 2 diabetes mellitus. 7. Hypercholesterolemia. 8. Chronic atrial fib for about 4 to 5 years. 9. Mild mitral regurgitation. 10. 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 11. 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 PAST SURGICAL HISTORY: 1. Vaginal hysterectomy. 2. Left mastectomy July 2000. 3. Right hip fracture with ORIF January 2016. 4. Pelvic sling placement January 2017. 5. Laparoscopic cholecystectomy September 2017. IMMUNIZATIONS: Pneumovax 23 given March 2000, July 2006 and August 2017. Prevnar 13 given 01/02/2016. Influenza vaccination given May 2019. FAMILY HISTORY: Notable for hypertension in her mother, [place] in her aunt, grandfather. No strokes in the family. Diabetes mellitus in her mother and grandmother, unknown cancer in her grandmother. SOCIAL HISTORY: The patient lives in [place]. She is . She has 3 children. She has never been a smoker. Does not drink alcohol. 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 REVIEW OF SYSTEMS: Negative except as above. PHYSICAL EXAM: GENERAL: Elderly white female with moderate kyphosis. SKIN: No rashes, rare bruising. HEENT: STARLA, EOMI. Sclerae clear. Oropharynx no redness. NECK: No LA, TMG, JVD, or bruits. Left carotid artery is superficial. CARDIOVASCULAR: Irregularly irregular. No murmur. LUNGS: Fairly clear. BACK: No point tenderness. ABDOMEN: Soft, nontender, nondistended. No mass. No hepatosplenomegaly. BREASTS/PELVIC/RECTAL: Deferred. EXTREMITIES: No calf tenderness or cords. Trace ankle edema. NEUROLOGIC: Cranial nerves 2 through 12 intact. Minimal weakness right arm and leg at most. EKG was done earlier when she was seen in the office this morning, shows atrial fibrillation with a ventricular response of 76. There are minor ST changes with inferior ST depression, left anterior fascicular block, inferior ST nonspecific changes, rule out depression. LABORATORY DATA: White count of 10.94, hemoglobin 14.2, hematocrit 42, platelets 255,000. Sodium 135, potassium 4.3, chloride 96, CO2 of 27, glucose 203, BUN 32, creatinine 1.1. Calcium 9.8, total CK 39. Digoxin 1.8. ProBNP 2686. High sensitivity troponin 24. Chest x-ray shows some cardiomegaly. I did call the patient back with these results of her labs and spoke with her and her daughter, and she had some recurrent minor chest pain that was relieved with nitroglycerin I had supplied to her this morning in the office, and that help her tightness in her chest, so they were bringing her back to the ER for admission. ASSESSMENT: 1. Chest pains with prominent risk factors for coronary artery disease. 2. Minimal congestive heart failure. 3. History of cerebrovascular accident with minor right arm and leg weakness. 4. Hypertension. 5. Type 2 diabetes mellitus. 6. Hypercholesterolemia. 7. Chronic atrial fibrillation on chronic anticoagulation with Eliquis. 8. Osteoarthritis. 9. History of left breast cancer. 10. Hypothyroidism. 11. Interstitial cystitis. 12. Kyphosis. 13. Mild mitral regurgitation. PLAN: We will admit the patient for 23-hour observation. Saline lock her. Give her 1 dose of low-dose Lasix at 20 mg IV at patient and daughter insistence. Add nitroglycerin paste and give home medications as she is already on. Add aspirin 81 mg daily. We will get Dr. Cunningham to see the patient again, as he had seen her in May when she was in with the stroke and echo was performed then. cc: Betito Woods MD
[2019-08-09] MEDS: NITROGLYCERIN TOP SCH ×2 (04:00→11:12)
[2019-08-09] MEDS ORDERED: PRILOSEC PO SCH (07:00)
--- NOTE | 2019-08-09 07:39 | EKG Report ---
Test Performed on : 08/09/2019 07:13:23 AM Test Reason : cp Blood Pressure : / mmHG Vent. Rate : 065 BPM Atrial Rate : 051 BPM P-R Int : 000 ms QRS Dur : 096 ms QT Int : 382 ms P-R-T Axes : 000 -41 126 degrees QTc Int : 397 ms Atrial fibrillation. Left axis deviation Nonspecific ST and T wave abnormality Abnormal ECG When compared with ECG of 08-AUG-2019 14:34, (Unconfirmed) No significant change was found Confirmed by Emir WILSON, Jose Maldonado ([id number]) on 08/10/2019 7:01:48 PM
[2019-08-09] MEDS ORDERED: SYNTHROID PO SCH (09:00)
[2019-08-09] MEDS ORDERED: NORVASC PO SCH (09:00)
[2019-08-09] MEDS ORDERED: CALTRATE 600 + D PO SCH (09:00)
[2019-08-09] MEDS ORDERED: MIRALAX PO SCH (09:00)
[2019-08-09] MEDS ORDERED: ASPIRIN PO SCH ×2 (09:00)
[2019-08-09] MEDS ORDERED: MICARDIS PO SCH (09:00)
[2019-08-09] MEDS ORDERED: CENTRUM SILVER PO SCH (09:00)
[2019-08-09 10:14] VITALS: BP 187/86
[2019-08-09] MEDS: GLUCOSAMINE 500 MG/CHONDROITIN 400 MG PO SCH (11:12)
[2019-08-09] MEDS: CATAPRES PO SCH (11:13)
[2019-08-09] MEDS: ELIQUIS PO SCH (11:14)
[2019-08-09] MEDS: COREG PO SCH (14:41)
[2019-08-09] MEDS: FISH OIL CONCENTRATE PO SCH (14:41)
--- NOTE | 2019-08-09 14:45 | PROGRESS NOTE ---
DATE: 08/09/2019 SUBJECTIVE: Patient doing well. She is feeling better. She is having no major chest pains. Dr. Mike printing press machinist has seen the patient this morning and feels like she is able to go home on some low-dose Lasix at 20 mg daily. OBJECTIVE: Vital Signs: Vital signs stable. Pulse as low as 48 up to 70, afebrile. Blood pressure currently 187/86, O2 saturation room air 95%. Cardiovascular: Irregularly irregular. Lungs: Kyphosis with distant breath sounds. Abdomen: Nontender. Extremities: No calf tenderness, cords or edema. Neurologic: Nonfocal. Minimal right arm and leg weakness, stable and chronic. LABORATORY DATA: Lab data from admission shows normal CBC. PT, PTT are normal. BMP shows BUN 32, creatinine 1.0, potassium 3.8. Outpatient troponin high sensitivity is 25, dropping to 19, drop to 18. CKs are very low in the 40s. LDL is 55. Total cholesterol 126, triglycerides 146, HDL 42. Chest x-ray shows stable chest. Accentuated kyphosis of the thoracic spine. Heart size slightly enlarged. ASSESSMENT: 1. Chest pains. 2. Minimal congestive heart failure. 3. Chronic atrial fibrillation on chronic anticoagulation with Eliquis. 4. History of cerebrovascular accident with minor right arm and leg weakness. 5. Hypertension. 6. Hypercholesterolemia. 7. Type 2 diabetes mellitus, stable on metformin. 8. Osteoarthritis. 9. History of left breast cancer. 10. Hypothyroidism. 11. Interstitial cystitis. 12. Kyphosis. 13. Mild mitral regurgitation. PLAN: Dr. Gigi Mike has seen the patient in consultation for Cardiology. He recommends follow up with her regular printing press machinist Dr. Cunningham soon and we will try to get that arranged within the next week. Continue her home medications with p.r.n. nitroglycerin, low-dose Lasix 20 mg p.o. q.a.m., and aspirin 81 mg daily in addition to her Eliquis, she has been on. She will follow up in my office within 3 weeks. We will discharge home. She knows to come back to the ER if chest pains or other difficulties. cc: Betito Woods MD
[2019-08-09] MEDS ORDERED: NEXIUM PO SCH (17:00)
--- NOTE | 2019-08-09 17:02 | CARDIOLOGY CONSULTATION ---
DATE: 08/09/2019 CHIEF COMPLAINT ON PRESENTATION: Palpitations, nausea and chest heaviness. HISTORY OF PRESENT ILLNESS: Ms. Elias is an 84-year-old female who follows with Dr. Cunningham. She has a history of chronic atrial fibrillation, hypertension, hyperlipidemia. She presented for evaluation of the above-noted symptoms. Initially they began the night before presenting. She was in an argument with her daughter and she had some palpitation like sensations in her upper chest. These persisted for several minutes. Then throughout the night she had some mild shortness of breath with occasional nausea spells. Later on the afternoon of admission on the she had some heaviness that persisted for around an hour in her chest, was nonexertional in nature. She had no other associated symptoms with this. She reports compliance with her medications. PAST MEDICAL HISTORY: 1. Significant for coronary disease as identified by coronary CTA in July 2013. This demonstrated a calcium score of 239. She had minor calcifications in the LAD as well as the RCA. 2. Chronic atrial fibrillation. 3. Hypertension. 4. Hyperlipidemia. 5. Diet controlled diabetes. SOCIAL HISTORY: She lives alone. She is . No tobacco use. She does not drink alcohol. FAMILY HISTORY: Notable for hypertension in her mother. An CO in her aunt and grandfather. No strokes in the family. Her mother and grandmother had diabetes. REVIEW OF SYSTEMS: A 10 system review of systems is negative except for those mentioned in the HPI. PHYSICAL EXAMINATION: Vital Signs: The patient is afebrile. Her heart rates have been anywhere from the 40s to the 70s primarily. The low heart rates were noted in the overnight hours 1 a.m. to 3 a.m. or so. Blood pressure 187/86. General: She is in no acute distress. HEENT: Oropharynx is moist. Poor dentition. Eye examination pink conjunctivae. White sclerae. Neck: Examination shows no obvious thyromegaly or thyroid tenderness. Cardiovascular: She sounds to be in an irregularly irregular rhythm which is consistent with her known atrial fibrillation. She has no lower extremity edema. Chest: Sounds clear bilaterally. She has no increased work of breathing. Abdomen: Soft, nontender, nondistended. She has no obvious organomegaly. Skin: Warm and dry throughout without any rashes. Neurological: Moving all extremities well. She has no lateralizing deficits or pertinent data. IMAGING: Her chest x-ray shows no acute findings. Old healed rib fracture. Subsequent follow-up appearance shows possible mild cardiomegaly. Her EKGs demonstrates initially on the 8th at 1434 rate controlled atrial fibrillation at 71 beats per minute. Subsequent EKG on the at 713 shows rate controlled atrial fibrillation at 65 beats per minute with mild nonspecific ST-T changes. LABORATORY: Her lab data shows white count 10.4, hematocrit 42, platelet count of 262,000. Her INR is 1.17, BUN and creatinine are 32 and 1.0. Her proBNP was 2359. Her high sensitivity troponin initially was 24, subsequently has come to 18. ASSESSMENT: Ms. Elias is an 84-year-old female with chronic atrial fibrillation who presents with some mild tightness in her chest as well as rapid atrial fibrillation. PLAN: Her laboratories have been essentially unremarkable. She has a very nonspecific elevation in her troponin. She has an elevation in her BNP which would suggest some mild diastolic failure. I would treat it as such. She already got some IV Lasix today. It would be reasonable to possibly add in Lasix at 20 mg daily. I would continue her home medications otherwise. We will have her follow up with Dr. Cunningham within the next few weeks and further evaluation will be done at that time. cc: MD Betito Smith MD
[2019-08-09] MEDS ORDERED: PRAVACHOL PO SCH (21:00)
== END 2019-08-09 14:25 | disposition home health service (06) ==
LOC: ED 14:22 → EDIPHOLD 17:29 → INTOOBSV 17:29 → EDIPHOLD 08-09 14:25
PROVIDERS: ADMIT Family Medicine; ATTEND Family Medicine